=== PATIENT | female | born 1950 | race Caucasian/White ===

== ENCOUNTER 2017-01-04 10:29 | Outpatient (CLI) | payer MEDICARE ==
[2017-01-04 11:40] LABS: Hematocrit 40.3 % (36.0-47.0); Mean Platelet Volume 8.2 fL (7.4-10.4); Red Blood Cell (RBC) Count 4.27 mill/uL (4.20-5.40)
--- NOTE | 2017-01-13 21:40 | EKG ---
Test Reason : Blood Pressure : / mmHG Vent. Rate : 069 BPM Atrial Rate : 069 BPM P-R Int : 140 ms QRS Dur : 074 ms QT Int : 388 ms P-R-T Axes : 084 056 066 degrees QTc Int : 415 ms Normal sinus rhythm Possible Left atrial enlargement Borderline ECG No previous ECGs available Confirmed by TONI RAYA (2) on 01/13/2017 9:40:19 PM Referred By: IERO Confirmed By:TONI RAYA
== END 2017-01-04 10:30 | disposition home or self-care (01) ==
LOC: LABBT 10:29
PROVIDERS: ATTEND Orthopaedic Surgery
DX: Z01.818 Encounter for other preprocedural examination (principal); M75.101 Unspecified rotator cuff tear or rupture of right shoulder, not specified as traumatic
CPT/HCPCS: 85027; 93005; 93010